=== PATIENT | female | born 1980 | race Caucasian/White ===

== ENCOUNTER 2018-07-25 15:09 | Outpatient (REF) | payer BC, SELFPAY ==
[2018-07-25 21:33] LABS: TSH (W/Ref FT4) 1.07 uIU/mL (0.358-3.74)
== END 2018-07-25 15:29 ==
LOC: NCHCN 15:09
PROVIDERS: PCP Internal Medicine; Visit Provider Family Medicine
DX: E03.9 Hypothyroidism, unspecified (principal)
CPT/HCPCS: 84443

== ENCOUNTER 2019-05-21 19:52 | Outpatient (REF) | payer BC, SELFPAY ==
[2019-05-21 20:31] LABS: T4 9.6 ug/dL (4.5-12.5); TSH 0.22 uIU/mL (0.358-3.74)
[2019-05-21 20:49] LABS: FREE T4 1.29 ng/dL (0.76-1.46)
== END 2019-05-21 20:12 ==
LOC: NCHCN 19:52
PROVIDERS: PCP Internal Medicine; Visit Provider Family Medicine
DX: E03.9 Hypothyroidism, unspecified (principal)
CPT/HCPCS: 84436; 84439; 84443

== ENCOUNTER 2020-01-22 20:25 | Outpatient (REF) | payer BC, SELFPAY ==
[2020-01-27 08:28] LABS: COVID-19 RT-PCR Result Not Detected (NotDetected)
== END 2020-01-22 20:45 ==
LOC: NCHCN 20:25
PROVIDERS: PCP Internal Medicine; Visit Provider Family Medicine
DX: Z20.828 Contact with and (suspected) exposure to other viral communicable diseases (principal); R50.9 Fever, unspecified
CPT/HCPCS: U0003

== ENCOUNTER 2020-07-20 15:56 | Outpatient (REF) | payer BC, SELFPAY ==
[2020-07-20 19:47] LABS: Calculated LDL 65 mg/dL (<100); Cholesterol 153 mg/dL (<200); Glucose 79 mg/dL (74-106); HDL Cholesterol 81 mg/dL (40-60); Triglyceride 35 mg/dL (<150)
[2020-07-20 20:18] LABS: FREE T4 1.75 ng/dL (0.76-1.46)
== END 2020-07-20 16:16 ==
LOC: NCHCN 15:56
PROVIDERS: PCP Internal Medicine; Visit Provider Family Medicine
DX: Z00.00 Encounter for general adult medical examination without abnormal findings (principal); E03.9 Hypothyroidism, unspecified; Z13.220 Encounter for screening for lipoid disorders; Z13.1 Encounter for screening for diabetes mellitus
CPT/HCPCS: 80061; 82947; 84439; 84443

== ENCOUNTER 2020-09-22 15:22 | Outpatient (REF) | payer BC, SELFPAY ==
[2020-09-26 14:57] LABS: Patient Race White; SARS-CoV-2 RNA Undetected (Undetected); SARS-CoV-2 Specimen Source Nasal
== END 2020-09-22 15:42 ==
LOC: NCHCN 15:22
PROVIDERS: PCP Internal Medicine; Visit Provider Nurse Practitioner Family
DX: Z11.59 Encounter for screening for other viral diseases (principal)
CPT/HCPCS: U0003

== ENCOUNTER 2020-11-01 16:36 | Outpatient (REF) | payer BC, SELFPAY ==
[2020-11-03 14:49] LABS: COVID-19 RT-PCR UVMMC Result Negative (Negative)
== END 2020-11-01 16:56 ==
LOC: NCHCN 16:36
PROVIDERS: PCP Internal Medicine; Visit Provider Family Medicine
DX: Z11.59 Encounter for screening for other viral diseases (principal)
CPT/HCPCS: U0003

== ENCOUNTER 2021-02-03 09:50 | Outpatient (REF) | payer BC, SELFPAY ==
--- NOTE | 2021-02-03 09:30 | PAPFT_PTH ---
PATIENT: Cody Sullivan LOC: [facility] U#:[id number] AGE/SX: 40/F ROOM: RE02/03/[address]: GRACE Stark : 1980 BED: DIS: 02/03/2021 SPEC #: [id number] RECD: 02/03/21 12:58 STATUS: MERVIN REQ #: [id number] KARL: 02/03/21 09:[address]: Joy Jang DEPT: [facility] Cytology RECD BY: Ashley Lloyd ENTERED: 02/03/21 12:58 SP TYPE: PAPFT OTHR DR: Christian Cummings Tissues: 1 - CX/ENDOCX FOR PAP SMEARS Procedures: PAP THIN PREP/[facility] Screening HPV DNA PROBE Comments: [id number]
== END 2021-02-03 09:51 | disposition home or self-care (01) ==
LOC: LBN 09:50
PROVIDERS: PCP Internal Medicine; Visit Provider Nurse Practitioner Family
DX: Z12.4 Encounter for screening for malignant neoplasm of cervix (principal); Z11.51 Encounter for screening for human papillomavirus (HPV)
CPT/HCPCS: 88142; 87624

== ENCOUNTER 2021-02-10 01:03 | Outpatient (CLI) | payer BC, SELFPAY ==
--- NOTE | 2021-02-10 10:15 | DI.MAMMO_ITS ---
EXAM: MG MAMMO SCREENING CLINICAL HISTORY: screening. TECHNIQUE: Bilateral full field digital CC and MLO mammographic images were obtained with 3D tomosyn thesis and utilizing computer aided detection (CAD). COMPARISON: None. Baseline exam. FINDINGS: Masses/Architectural Distortion: None seen. Microcalcifications: No suspicious pleomorphic-type are seen. Skin Thickening/Nipple Retraction: None. IMPRESSION: 1. No significant interval change with no specific features of malignancy noted. 2. Unless there is more urgent need, annual screening mammography is recommended, as per [place] [employer] guidelines. BI-RADS Category 1-negative Breast Density - Category D - extremely dense Breast Density Category D: The mammogram demonstrates the patient's breast tissue is dense. Dense marcia ast tissue is very common and is not abnormal but dense breast tissue can make it harder to find canc er on a mammogram. Also, dense breast tissue may increase their breast cancer risk. This information about the result of the mammogram report was provided to the patient to raise their awareness. Use th is report when you speak with the patient about their risks for breast cancer, which includes their f amily history. At that time, you may recommend for more screening tests (Ultrasound or MRI) as they m ight be useful based on their risk. A negative radiographic report should not delay biopsy if a dominant or clinically suspicious mass is present. Up to ten percent of cancers are not identified on mammography. A negative report may reinforce clinical impression. Adenosis and dense breasts may obscure an underlying neoplasm. False positive reports average 6 to 10%.
== END 2021-02-10 01:23 ==
PROVIDERS: PCP Internal Medicine; Visit Provider Nurse Practitioner Family
DX: Z12.39 Encounter for other screening for malignant neoplasm of breast (principal); R92.2 Inconclusive mammogram
CPT/HCPCS: 77063; 77067

== ENCOUNTER 2021-04-05 16:12 | Outpatient (REF) | payer BC, SELFPAY ==
[2021-04-05 19:32] LABS: TSH (W/Ref FT4) 3.13 uIU/mL (0.36-3.74)
== END 2021-04-05 16:13 | disposition home or self-care (01) ==
LOC: NCHCN 16:12
PROVIDERS: PCP Internal Medicine; Visit Provider Family Medicine
DX: Z00.00 Encounter for general adult medical examination without abnormal findings (principal); E03.9 Hypothyroidism, unspecified
CPT/HCPCS: 84443

== ENCOUNTER 2021-11-10 10:50 | Outpatient (REF) | payer BC, SELFPAY ==
[2021-11-10 16:18] LABS: TSH 0.39 uIU/mL (0.36-3.74)
== END 2021-11-10 10:51 | disposition home or self-care (01) ==
LOC: NCHCN 10:50
PROVIDERS: PCP Internal Medicine; Visit Provider Family Medicine
DX: E03.9 Hypothyroidism, unspecified (principal)
CPT/HCPCS: 84443

== ENCOUNTER 2023-03-22 14:19 | Outpatient (REF) | payer BC, SELFPAY ==
[2023-03-22 15:37] LABS: TSH (W/Ref FT4) 0.22 uIU/mL (0.36-3.74)
[2023-03-22 15:55] LABS: FREE T4 1.68 ng/dL (0.76-1.46)
== END 2023-03-22 14:20 | disposition home or self-care (01) ==
LOC: NCHCN 14:19
PROVIDERS: PCP Internal Medicine; Visit Provider Family Medicine
DX: E03.9 Hypothyroidism, unspecified (principal)
CPT/HCPCS: 84439; 84443

== ENCOUNTER → 2023-08-13 03:41 | Outpatient (CLI) | payer BC, SELFPAY ==
--- NOTE | 2023-08-13 | DI.MAMMO_ITS ---
Exam(s) MAMMO SCREENING EXAM: MAMMO SCREENING CLINICAL HISTORY: SCREENING, Z12.31 TECHNIQUE: Bilateral full field digital CC and MLO mammographic images were obtained with 3D tomosyn thesis and utilizing computer aided detection (CAD). COMPARISON: 2020 FINDINGS: Masses/Architectural Distortion: None seen. Microcalcifications: No suspicious pleomorphic-type are seen. Skin Thickening/Nipple Retraction: None. IMPRESSION: 1. No significant interval change with no specific features of malignancy noted. 2. Unless there is more urgent need, screening mammography is recommended, as per [place] [employer] guidelines. Category: Density: Breast density category C or D implies that the patient has dense breast tissue. Dense breast tissue is very common and is not abnormal but dense breast tissue can make it harder to find cancer on a ma mmogram. Also, dense breast tissue may increase their breast cancer risk. This information about the result of the mammogram report was provided to the patient to raise their awareness. Use this report when you speak with the patient about their risks for breast cancer, which includes their family hist ory. At that time, you may recommend for more screening tests (Ultrasound or MRI) as they might be us eful based on their risk. A negative radiographic report should not delay biopsy if a dominant or clinically suspicious mass is present. Up to ten percent of cancers are not identified on mammography. A negative report may reinforce clinical impression. Adenosis and dense breasts may obscure an underlying neoplasm. False positive reports average 6 to 10%. Patient will receive a letter notifying them of these results.
== END ==
PROVIDERS: PCP Internal Medicine; Visit Provider Family Medicine
DX: Z12.31 Encounter for screening mammogram for malignant neoplasm of breast (principal)
CPT/HCPCS: 77063; 77067

== ENCOUNTER 2024-09-26 13:09 | Outpatient (REF) | payer BC, SELFPAY ==
--- OUTSIDE RECORDS SUMMARY | 2024-09-26 13:10 | XMS_ITS | Encounter Summary ---
Author Organization [facility] Address [address] [place] [address] Care Team Providers Care Flow Specialist Name Role Phone Christian Cummings MD Primary Care Provider [phone] Encounter Details Date Type Department Care Team (Late st Contact Info) Description 02/04/2021 Lab Requisition [facility] Pathology & Laboratory Medicine - [address] [address] Joy Jang, [address] [place] [address] Encounter for other general examination Social History Tobacco Use Types Packs/Day Years Used Date Smoking Tobacco: Never Assessed Comments Unknown Sex and Gender Information Value Date Recorded Sex Assigned at Not on file Legal Sex Female 18:33 EST Gender Identity Not on file Sexual Orientation Not on file documented as of this encounter Plan of Treatment Not on file documented as of this encounter Procedures Procedure Name Priority Date/Time Associated Diagnosis Comments PAP TEST Today 02/03/2021 9:30 EDT Encounter for other general examination HPV DNA DETECTION WITH GENOTYPING, PCR Today 02/03/2021 9:30 EDT Encounter for other general examination documented in this encounter Results * HUMAN PAPILLOMAVIRUS (HPV) DETECTION-HIGH RISK TYPES (02/03/2021 9:30 EDT) HPV other High Risk types, PCR Negative Negative 02/11/2021 14:59 EDT [facility] Comment:No E6 or E7 mRNA is detected from HPV types 16,18,31,33,35,39,45,51,52,56,58,59,66, and 68 by uptwist spinner mediated amplification. Papanicolaou smear specimen (specimen) CERVIX UTERI STRUCTURE / Unknown 02/03/2021 9:30 EDT 02/10/2021 10:58 EDT Joy Jang REPRODUCTION TECHNICIAN MICROBIOLOGY - GENERAL ORDER NACHO Final Result [facility] [address] [place] [address] * PAP TEST (02/03/2021 9:30 EDT) Specimens A. Cervix and/or Endocervix , ThinPrep Imaging System with Manual Evaluation 02/11/2021 14:59 EDT [facility] Specimen Adequacy Satisfactory for Evaluation - transformation zone component present 02/11/2021 14:59 EDT [facility] General Categorization Negative for intraepithelial lesion or malignancy 02/11/2021 14:59 EDT [facility] Attestation . 02/11/2021 14:59 T [facility] at 1459 Clinical History See below 02/12/20 21 14:59 EDT [facility] HPV The result for the Human Papillomavirus (HPV) Detection-High Risk Types is Negative. No E6 or E7 mRNA is detected from HPV types 16,18,31,33,35,39 ,45,51,52,56,58,5 9,66, and 68 by uptwist spinner mediated amplification.Davina ting was performed on specimen [id number] and was resulted on 02/11/2021 1457 EDT by GABRIELLE, LAB INSTRUMENT RESULTS IN 02/11/2021 14:59 EDT [facility] Performing Lab [facility] 02/11/2021 14:59 EDT [facility] Scanned Images 02/11/2021 14:59 EDT [facility] Papanicolaou smear specimen (specimen) CERVIX UTERI STRUCTURE / Unknown 02/03/2021 9:30 EDT 02/04/2021 9:12 EDT Joy Jang REPRODUCTION TECHNICIAN PATHOLOGY ORDERABLES Final R esult [facility] [address] [place] [address] documented in this encounter Visit Diagnoses Diagnosis Encounter for other general examination documented in this encounter Care Teams Flow Specialist Relationship Specialty Start Date End Date Christian Cummings MD [address] [place] [address] PCP - General 11/19/14 documented as of this encounter
--- OUTSIDE RECORDS SUMMARY | 2024-09-26 13:10 | XMS_ITS | Encounter Summary ---
Author Organization [facility] Address [address] [place] [address] Care Team Providers Care Lead Sales Consultant Name Role Phone Christian Cummings MD Primary Care Provider [phone] Encounter Details Date Type Department Care Team (Late st Contact Info) Description 11/02/2020 Lab Requisition [facility] Pathology & Laboratory Medicine - [address] [address] Outr Resulting Lab, Provider Social History Tobacco Use Types Packs/Day Years [...] Procedure Name Priority Date/Time Associated Diagnosis Comments ZZCOVID-19 TEST [facility] PCR Today 11/01/2020 16:05 EST COVID-19 TESTING Routine 11/01/2020 16:0 5 EST documented in this encounter Results * COVID-19 TEST [facility] PCR (11/01/2020 16:05 EST) Swab ENTIRE NASOPHARYNX / Unknown 11/01/2020 16:05 EST 11/02/2020 16:07 EST us Provider Outr Resulting Lab MICROBIOLOGY - GENER AL ORDERABLES Final Result [facility] [address] [place] [address] * COVID-19 TESTING (11/01/2020 16:05 EST) COVID-19 rt-PCR Result Negative Negative 11/03/2020 14:[address] [facility] Comment: Negative results do not preclude 2019-nCoV infection and should not be used as the sole basis for treatment or other patient management decisions. Negative results must be combined with clinical observations, patient history, and epidemiological information. This test was developed and its performance characteristics determined by [facility]. It has not been cleared or approved by the US Food and Drug Administration. FDA does not require this test to go through premarket FDA review. This test is used for clinical purposes. It should not be regarded as investigational or for research. This laboratory is certified under the Clinical Laboratory Improvement Amendments (CLIA) as qualified to perform high complexity clinical laboratory testing. This test is based on the CDC COVID-19 Emergency Use Authorization (EUA) assay, with minor modification as defined by the FDA Performed on the Door 6 7 Flex. Performing Lab [employer] 7 [facility] 11/03/2020 14:[address] [facility] Swab 11/01/2020 16:0 5 EST 11/02/2020 16:07 EST us Provider Outr Resulting Lab MICROBIOLOGY - GENER AL ORDERABLES Final Result [facility] [address] [place] [address] documented in this encounter Visit Diagnoses Not on filedocumented in this encounter Care Teams Lead Sales Consultant Relationship Specialty Start Date End Date Christian Cummings MD [address] [place] [id number] PCP - General 11/19/14 documented as of this encounter
--- OUTSIDE RECORDS SUMMARY | 2024-09-26 13:10 | XMS_ITS | Encounter Summary ---
Author Organization [facility] Address [address] [place] [address] Care Team Providers Care Physics Technical Officer Name Role Phone Christian Cummings MD Primary Care Provider [phone] Encounter Details Date Type Department Care Team (Late st Contact Info) Description 11/15/2020 Lab Requisition [facility] Pathology & Laboratory Medicine - [address] [id number] Outr Resulting Lab, Provider Social History Tobacco [...] Procedure Name Priority Date/Time Associated Diagnosis Comments DO NOT ORDER STANDALONE - [facility] COVID TEST Today 11/15/2020 12:39 EST COVID-19 TESTING Routine 11/15/2020 12:3 9 EST documented in this encounter Results * DO NOT ORDER STANDALONE - BROAD COVID TEST (11/15/2020 12:39 EST) COVID-19 rt-PCR Result NEGATIVE Negative 11/16/2020 20:45 EST [facility] Comment: 2019-novel Coronavirus (2019-nCoV) not detected by the qRT-PCR assay. Consider testing for other respiratory viruses or re-collecting for 2019-nCoV testing. Note: Optimum timing for peak viral levels during infections caused by 2019-nCoV have not been determined. Collection of multiple specimens from the same patient may be necessary to detect the virus. Limitations Positive results are indicative of active infection with SARS-CoV-2 but do not rule out bacterial infection or co-infection with other viruses. The agent detected may not be the definite cause of disease. In addition, detection of viral RNA may not indicate the presence of infectious virus or that SARS-CoV-2 is the causative agent for clinical symptoms. Negative results do not preclude SARS-CoV-2 infection and should not be used as the sole basis for patient management decisions. Negative results must be combined with clinical observations, patient history, and epidemiological information. False negative results may also occur if amplification inhibitors are present in the specimen or if inadequate numbers of organisms are present in the specimen. Optimum specimen types and timing for peak viral levels during infections caused by SARS-CoV-2 have not been fully determined. Collection of multiple specimens (types and time points) from the same patient may be necessary to detect the virus. The test was validated for use with upper respiratory specimens obtained via nasopharyngeal or oropharyngeal swabs in VTM, UTM, M4, M5, M6, saline, and MTM media. The performance of this test has not been established for other specimens. Specimens collected using other FDA recommended Specimen Collection Materials listed in the FDA COVID-19 [employer] communication (January 29, 2020) are processed with the caveat that they were not all validated for use with this test and the result must be interpreted in this context. Furthermore, a false negative results may occur if a specimen is improperly collected, transported or handled. If the virus mutates in the RT-PCR target region, SARS-CoV-2 may not be detected or may be detected less predictably. Inhibitors or other types of interference may produce a false negative result. An interference study evaluating the effect of common cold medications was not performed. This test is not FDA-cleared but its performance characteristics were established by our CLIA-certified, CAP-accredited, high complexity laboratory in accordance with CLIA regulations, [employer] (CAP) guidelines (Jan 22, 2020), and FDA guidance (Jan 03, 2020). This test is only for use under the Food and Drug Administration's Emergency Use Authorization. Swab ENTIRE NASOPHARYNX / Unknown 11/15/2020 12:39 EST 11/15/2020 21:06 EST us Provider Outr Resulting Lab MICROBIOLOGY - GENER AL ORDERABLES Final Result [facility] [place] * COVID-19 TESTING (11/15/2020 12:39 EST) COVID-19 rt-PCR Result NEGATIVE Negative 11/16/2020 21:[address] [facility] Comment: 2019-novel Coronavirus (2019-nCoV) not detected by the qRT-PCR assay. Consider testing for other respiratory viruses or re-collecting for 2019-nCoV testing. Note: Optimum timing for peak viral levels during infections caused by 2019-nCoV have not been determined. Collection of multiple specimens from the same patient may be necessary to detect the virus. Limitations Positive results are indicative of active infection with SARS-CoV-2 but do not rule out bacterial infection or co-infection with other viruses. The agent detected may not be the definite cause of disease. In addition, detection of viral RNA may not indicate the presence of infectious virus or that SARS-CoV-2 is the causative agent for clinical symptoms. Negative results do not preclude SARS-CoV-2 infection and should not be used as the sole basis for patient management decisions. Negative results must be combined with clinical observations, patient history, and epidemiological information. False negative results may also occur if amplification inhibitors are present in the specimen or if inadequate numbers of organisms are present in the specimen. Optimum specimen types and timing for peak viral levels during infections caused by SARS-CoV-2 have not been fully determined. Collection of multiple specimens (types and time points) from the same patient may be necessary to detect the virus. The test was validated for use with upper respiratory specimens obtained via nasopharyngeal or oropharyngeal swabs in VTM, UTM, M4, M5, M6, saline, and MTM media. The performance of this test has not been established for other specimens. Specimens collected using other FDA recommended Specimen Collection Materials listed in the FDA COVID-19 [employer] communication (January 29, 2020) are processed with the caveat that they were not all validated for use with this test and the result must be interpreted in this context. Furthermore, a false negative results may occur if a specimen is improperly collected, transported or handled. If the virus mutates in the RT-PCR target region, SARS-CoV-2 may not be detected or may be detected less predictably. Inhibitors or other types of interference may produce a false negative result. An interference study evaluating the effect of common cold medications was not performed. This test is not FDA-cleared but its performance characteristics were established by our CLIA-certified, CAP-accredited, high complexity laboratory in accordance with CLIA regulations, [employer] (CAP) guidelines (Jan 22, 2020), and FDA guidance (Jan 03, 2020). This test is only for use under the Food and Drug Administration's Emergency Use Authorization. Performing Lab [facility] 11/16/2020 21:40 EST [facility] Swab 11/15/2020 12:3 9 EST 11/15/2020 21:06 EST us Provider Outr Resulting Lab MICROBIOLOGY - GENER AL ORDERABLES Final Result [facility] [address] [place] [address] [facility] [place] documented in this encounter Visit Diagnoses Not on filedocumented in this encounter Care Teams Physics Technical Officer Relationship Specialty Start Date End Date Christian Cummings MD [address] [place] [id number] PCP - General 11/19/14 documented as of this encounter
--- OUTSIDE RECORDS SUMMARY | 2024-09-26 13:10 | XMS_ITS | Clinical Summary ---
Author Organization [facility] Address [address] [place] [address] Care Team Providers Care Sterile Instrument Technician Name Role Phone Christian Cummings MD Primary Care Provider [phone] Social History Tobacco Use Types Packs/Day Years Used Date Smoking Tobacco: Never Assessed Comments Unknown Sex and Gender Information Value Date Recorded Sex Assigned at Not on file Legal Sex Female 18:33 EST Gender Identity Not on file Sexual Orientation Not on file Plan of Treatment Health Maintenance Due Date Last Done Comments Hepatitis C Screen 1980 Hepatitis B Vaccine (1 of 3 - 19+ 3-dose series) 06/19 COVID-19 Vaccine ( season) 2024 Care Teams Sterile Instrument Technician Relationship Specialty Start Date End Date Christian Cummings MD [address] [place] [id number] PCP - General 11/19/14
--- OUTSIDE RECORDS SUMMARY | 2024-09-26 13:10 | XMS_ITS | Referral Summary ---
Author Organization [facility] Address [address] [place] [address] Care Team Providers Care Shipyard Painting Supervisor Name Role Phone Christian Cummings MD Primary Care Provider [phone] Social History Tobacco Use Types Packs/Day Years Used Date Smoking Tobacco: Never Assessed Comments Unknown Sex and Gender Information Value Date Recorded Sex Assigned at Not on file Legal Sex Female 18:33 EST Gender Identity Not on file Sexual Orientation Not on file Plan of Treatment Not on file Care Teams Shipyard Painting Supervisor Relationship Specialty Start Date End Date Christian Cummings MD [address] [place] [address] PCP - General 11/19/14
--- OUTSIDE RECORDS SUMMARY | 2024-09-26 13:11 | XMS_ITS | Encounter Summary ---
Author Organization [facility] Address [address] [place] [address] Care Team Providers Care Per Diem Clerk Name Role Phone Unknown, Provider Primary Care Provider Unava ilable Encounter Details Date Type Department Care Team (Late st Contact Info) Description 03/08/2004 Results Only [facility] conversion [address] [place] [address] Joy Jang, [facility] [address] [place] [address] [place] [address] Social History Tobacco Use Types Packs/Day Years [...] Procedure Name Priority Date/Time Associated Diagnosis Comments CYTOPATHOLOGY Routine 03/08/2004 0:00 EDT documented in this encounter Results * CYTOPATHOLOGY (03/08/2004 0:00 EDT) Pathology Report: CYTOPATHOLOGY REPORT Reports generated via electronic interface contain original data; however they are lacking the format of the original report. Caution should be taken when reading/interpreti ng unformatted reports. Name: ? SUN TOÑITO Patrice ? Accession #: ? [id number] : ? 1980 (Age: 23) ??F ?Collect Date: ? 03/08/2004 Location: ? [facility] ? Receive Date: ? 03/09/2004 Provider: ?JOY JANG ACCOUNTS RECEIVABLE SPECIALIST Copy to: ? Specimen/Source: ?ThinPrep Pap Test, Cervix/Endocervix Last Menstrual Period: ? 02/10/04 Other: ? HPVA - HPV testing requested if ASC-US on the current ThinPrep Pap test. ? SPECIMEN ADEQUACY ? Satisfactory for Evaluation - transformation zone component present GENERAL CATEGORIZATION ? Negative for Intraepithelial Lesion or Malignancy ? Document reviewed and electronically signed by: ? ARMIDA Jackson(ASCP) ? Report Date: ??03/14/2004 14:57 End of Report [facility] 03/08/2004 03/09/2004 us Joy Jang ACCOUNTS RECEIVABLE SPECIALIST PATHOLOGY ORDERABLES Final R esult [facility] [address] [place] [address] documented in this encounter Visit Diagnoses Not on filedocumented in this encounter Care Teams Per Diem Clerk Relationship Specialty Start Date End Date Unknown, Provider, PCP - General 07/14/09 11/18/14 documented as of this encounter
--- OUTSIDE RECORDS SUMMARY | 2024-09-26 13:11 | XMS_ITS | Encounter Summary ---
Author Organization [facility] Address [address] [place] [address] Care Team Providers Care Security Systems Integrator Name Role Phone Unknown, Provider Primary Care Provider Unava ilable Encounter Details Date Type Department Care Team (Latest Contact Info) Description 11/16/2014 9:52 EST - 11/16/2014 23:59 EST Hospital Encounter [address] [address] Unknown, Provider, Discharge Disposition: Home or Self Care Social History Tobacco Use Types Packs/Day Years Used Date Smoking Tobacco: Never Assessed Comments Unknown Sex and Gender Information Value Date Recorded Sex Assigned at Not on file Legal Sex Female 18:33 EST Gender Identity Not on file Sexual Orientation Not on file documented as of this encounter Discharge Disposition Disposition Code Departure Means Destination Home or Self Residential documented in this encounter Plan of Treatment Not on file documented as of this encounter Visit Diagnoses Not on filedocumented in this encounter Care Teams Security Systems Integrator Relationship Specialty Start Date End Date Unknown, Provider, PCP - General 07/14/09 11/18/14 documented as of this encounter
--- OUTSIDE RECORDS SUMMARY | 2024-09-26 13:11 | XMS_ITS | Encounter Summary ---
Author Organization [facility] Address [address] [place] [address] Care Team Providers Care Grain Broker Name Role Phone Christian Cummings MD Primary Care Provider [phone] Encounter Details Date Type Department Care Team (Late st Contact Info) Description 01/24/2020 Lab Requisition [facility] Pathology & Laboratory Medicine - [address] [address] Jorge Luis Lloyd MD [address] [place] [phone] Encounter for other general examination Social History [...] Procedure Name Priority Date/Time Associated Diagnosis Comments COVID-19 TESTING Today 01/22/2020 20:0 0 EDT Encounter for other general examination documented in this encounter Results * COVID-19 TEST STATE LAB (01/22/2020 20:00 EDT) COVID-19 Result Not Detected Not Detected 02/04/2020 20:55 EDT [facility] Comment:Assayed by [facility], [place], [place] Swab ENTIRE NASOPHARYNX / Unknown 01/22/2020 20:00 EDT 01/24/2020 13:24 EDT us Jorge Luis Lloyd MD MICROBIOLOGY - GENERAL CAITY MCELROY Final Result [facility] [address] [place] [address] documented in this encounter Visit Diagnoses Diagnosis Encounter for other general examination documented in this encounter Care Teams Grain Broker Relationship Specialty Start Date End Date Christian Cummings MD [address] [place] [id number] PCP - General 11/19/14 documented as of this encounter
--- OUTSIDE RECORDS SUMMARY | 2024-09-26 13:11 | XMS_ITS | Encounter Summary ---
Author Organization [facility] Address [address] [place] [address] Care Team Providers Care Head School Custodian Name Role Phone Unknown, Provider Primary Care Provider Unava ilable Encounter Details Date Type Department Care Team (Late st Contact Info) Description 03/20/2006 Results Only [facility] - Map conversion [address] [place] [address] Joy Jang, [facility] [address] [place] [address] [place] [address] Social History Tobacco Use Types [...] Procedure Name Priority Date/Time Associated Diagnosis Comments HPV DETECTION, HIGH RISK TYPES Routine 03/20/2006 8:40 EDT CYTOPATHOLOGY Routine 03/20/2006 0:00 EDT documented in this encounter Results * HUMAN PAPILLOMA VIRUS DNA TEST (03/20/2006 8:40 EDT) Specimen Description Cervix, ThinPrep vial [facility] Result Positive for one or more of HPV types 16,18,31,33,35 ,39,45,51,52,5 6,58,59, or 68. These high/intermedi ate risk HPV types are associated with dysplasia and some cervical cancers. [facility] Report Status Final [id number] [facility] 03/20/2006 8:40 EDT 03/27/2006 11:40 EDT Joy Jang PARALEGAL SECRETARY MICROBIOLOGY - GENERAL ORDER NACHO Final Result [facility] [address] [place] [address] * CYTOPATHOLOGY (03/20/2006 0:00 EDT) Pathology Report: CYTOPATHOLOGY REPORT Reports generated via electronic interface contain original data; however they are lacking the format of the original report. Caution should be taken when reading/interpreti ng unformatted reports. Name: ? TOÑITO GARSIA ? Accession #: ? [id number] : ? 1980 (Age: 25) ??F ?Collect Date: ? 03/20/2006 Location: ? [facility] ? Receive Date: ? 03/21/2006 Provider: ?JOY JANG PARALEGAL SECRETARY Copy to: ? Specimen/Source: ?ThinPrep Pap Test, Cervix/Endocervix, processed on [employer] ThinPrep Imaging System, with manual evaluation Last Menstrual Period: ? 03/05/06 Hormonal/Contracep tive Status: ? Oral contraceptives Other: ? HPVA - HPV testing requested if ASC-US on the current ThinPrep Pap test. ? SPECIMEN ADEQUACY ? Satisfactory for Evaluation - transformation zone component present GENERAL CATEGORIZATION ? Epithelial Cell Abnormality INTERPRETATION ? Squamous Cell Abnormality - Atypical squamous cells, undetermined significance. EDUCATIONAL NOTES/RECOMMENDATI ONS ? [facility] recommends following the 2001 Consensus Guidelines for the Management of Women with Cervical Cytological Abnormalities (ANGY,2002;287:212 0-9). Management algorithms have been distributed by [facility] and are available online at www.ASCCP.org. ? Document reviewed and electronically signed by: ? REID CARSON MD ? Report Date: ??03/26/2006 13:08 End of Report [facility] 03/20/2006 03/21/2006 us Joy Jang PARALEGAL SECRETARY PATHOLOGY ORDERABLES Final R esult [facility] [address] [place] [address] documented in this encounter Visit Diagnoses Not on filedocumented in this encounter Care Teams Head School Custodian Relationship Specialty Start Date End Date Unknown, Provider, PCP - General 07/14/09 11/18/14 documented as of this encounter
--- OUTSIDE RECORDS SUMMARY | 2024-09-26 13:11 | XMS_ITS | Encounter Summary ---
[place] [address] Care Team Providers Care Security Operations Analyst Name Role Phone Unavailable Primary Care Provider Unavailabl e Encounter Details Date Type Department Care Team (Latest Contact Info) Description 09/20/2020 8:39 PM EST - 09/20/2020 11:59 PM EST Hospital [place] [address] Discharge Disposition: Home Social History Tobacco Use Types Packs/Day Years Used Date Smoking Tobacco: Never Assessed Sex and Gender Information Value Date Recorded Sex Assigned at Not on file Gender Identity Not on file Sexual Orientation Not on file documented as of this encounter Plan of Treatment Not on file documented as of this encounter Visit Diagnoses Not on filedocumented in this encounter
--- OUTSIDE RECORDS SUMMARY | 2024-09-26 13:11 | XMS_ITS | Clinical Summary ---
[place] [address] Care Team Providers Care Insurance Risk Surveyor Name Role Phone Unavailable Primary Care Provider Unavailabl e Social History Tobacco Use Types Packs/Day Years Used Date Smoking Tobacco: Never Assessed Sex and Gender Information Value Date Recorded Sex Assigned at Not on file Gender Identity Not on file Sexual Orientation Not on file Plan of Treatment Health Maintenance Due Date Last Done Comments HIV screen 1998 Hepatitis C Screening 1998 Hepatitis B vaccine (0-59 yrs) (1) 1999 Tetanus/Diphtheria/Pertussis Vaccines (1 - Tdap) 06/19 HPV test 2010 PAP Smear 2010 Breast Cancer Share Decision Needed 2020 Breast Cancer screening 2020 Covid-19 Vaccine ( - season) 2024 Influenza (Flu) vaccine (1 o f 1 - Influenza standard series) 07/06/2024
--- OUTSIDE RECORDS SUMMARY | 2024-09-26 13:11 | XMS_ITS | Encounter Summary ---
Author Organization [facility] Address [address] [place] [address] Care Team Providers Care Hand Roller Engraver Name Role Phone Christian Cummings MD Primary Care Provider [phone] Encounter Details Date Type Department Care Team (Late st Contact Info) Description 04/20/2020 Lab Requisition [facility] Pathology & Laboratory Medicine - [address] [id number] Outr Resulting Lab, Provider Social History Tobacco [...] ORDER STANDALONE - [facility]OAD COVID TEST Today 04/20/2020 8:45 EDT COVID-19 TESTING Routine 04/20/2020 8:45 EDT documented in this encounter Results * DO NOT ORDER STANDALONE - BROAD COVID TEST (04/20/2020 8:45 EDT) COVID-19 rt-PCR Result NEGATIVE Negative 04/21/2020 22:45 EDT [facility] Comment: 2019-novel Coronavirus (2019-nCoV) not [...] in accordance with CLIA regulations, College of [employer] Pathologists (CAP) guidelines (Jan 22, 2020), and FDA guidance (Jan 03, 2020). This test is only for use under the Food and Drug Administration's Emergency Use Authorization. Swab ENTIRE NASOPHARYNX / Unknown 04/20/2020 8:45 EDT 04/20/2020 19:28 EDT us Provider Outr Resulting Lab MICROBIOLOGY - GENER AL ORDERABLES Final Result [facility] [place], [place] * COVID-19 TESTING (04/20/2020 8:45 EDT) Pathologist [facility] COVID-19 rt-PCR Result NEGATIVE Negative 04/22/2020 7:04 EDT [facility] Comment: 2019-novel Coronavirus (2019-nCoV) not detected [...] in accordance with CLIA regulations, College of [employer] Pathologists (CAP) guidelines (Jan 22, 2020), and FDA guidance (Jan 03, 2020). This test is only for use under the Food and Drug Administration's Emergency Use Authorization. Performing Lab [facility] 04/22/2020 7:04 EDT [facility] Swab ENTIRE NASOPHARYNX / Unknown 04/20/2020 8:45 EDT 04/20/2020 19:28 EDT us Provider Outr Resulting Lab MICROBIOLOGY - GENER AL ORDERABLES Final Result [facility] [address] [place] [address] [facility] [place], [place] documented in this encounter Visit Diagnoses Not on filedocumented in this encounter Care Teams Hand Roller Engraver Relationship Specialty Start Date End Date Christian Cummings MD [address] [place] [id number] PCP - General 11/19/14 documented as of this encounter
--- OUTSIDE RECORDS SUMMARY | 2024-09-26 13:11 | XMS_ITS | Encounter Summary ---
Author Organization [facility] Address [address] [place] [address] Care Team Providers Care Chrome Plater Helper Name Role Phone Christian Cummings MD Primary Care Provider [phone] Encounter Details Date Type Department Care Team (Late st Contact Info) Description 10/19/2020 Lab Requisition [facility] Pathology & Laboratory Medicine - [address] [address] Outr Resulting Lab, Provider Social History Tobacco [...] ORDER STANDALONE - BROAD COVID TEST Today 10/18/2020 12:35 EST COVID-19 TESTING Routine 10/18/2020 12:3 5 EST documented in this encounter Results * DO NOT ORDER STANDALONE - BROAD COVID TEST (10/18/2020 12:35 EST) COVID-19 rt-PCR Result NEGATIVE Negative 10/21/2020 20:27 EST [facility] Comment: 2019-novel Coronavirus [...] in accordance with CLIA regulations, College of [place] [employer]ologists (CAP) guidelines (Jan 22, 2020), and FDA guidance (Jan 03, 2020). This test is only for use under the Food and Drug Administration's Emergency Use Authorization. Swab ENTIRE NASOPHARYNX / Unknown 10/18/2020 12:35 EST 10/19/2020 16:10 EST us Provider Outr Resulting Lab MICROBIOLOGY - GENER AL ORDERABLES Final Result [facility] [place], [place] * COVID-19 TESTING (10/18/2020 12:35 EST) COVID-19 rt-PCR Result NEGATIVE Negative 10/21/2020 21:19 EST [facility] Comment: 2019-novel Coronavirus (2019-nCoV) not detected [...] in accordance with CLIA regulations, College of [place] Pathologists (CAP) guidelines (Jan 22, 2020), and FDA guidance (Jan 03, 2020). This test is only for use under the Food and Drug Administration's Emergency Use Authorization. Performing Lab [facility] 10/21/2020 21:19 EST [facility] Swab 10/18/2020 12:3 5 EST 10/19/2020 16:10 EST us Provider Outr Resulting Lab MICROBIOLOGY - GENER AL ORDERABLES Final Result [facility] [address] [place] [address] [facility] [place], [place] documented in this encounter Visit Diagnoses Not on filedocumented in this encounter Care Teams Chrome Plater Helper Relationship Specialty Start Date End Date Christian Cummings MD [address] [place] [id number] PCP - General 11/19/14 documented as of this encounter
--- OUTSIDE RECORDS SUMMARY | 2024-09-26 13:11 | XMS_ITS | Encounter Summary ---
Author Organization [facility] Address [address] [place] [address] Care Team Providers Care Cylinder Press Operator Apprentice Name Role Phone Unavailable Primary Care Provider Unavailabl e Encounter Details Date Type Department Care Team (Latest Contact Info) Description 07/13/2009 14:04 EDT - 07/13/2009 14:06 EDT Hospital Encounter [facility] - Other [address] [place] [address] [address] [place] [address] Discharge Disposition: Home or Self Care Social [...] Code Departure Means Destination Home or Self Care documented in this encounter Plan of Treatment Not on file documented as of this encounter Visit Diagnoses Not on filedocumented in this encounter
--- OUTSIDE RECORDS SUMMARY | 2024-09-26 13:11 | XMS_ITS | Encounter Summary ---
Author Organization [facility] Address [address] [place] [address] Care Team Providers Care Steamtable Worker Name Role Phone Unavailable Primary Care Provider Unavailabl e Encounter Details Date Type Department Care Team (Late st Contact Info) Description 06/16/2008 Before PRISM Converted Visit (Maple) [facility] - Maple conversion [address] [place] [address] Alis Tejeda MD [address] [place] [phone] Social History Tobacco Use Types Packs/Day Years [...] Comments HPV DETECTION, HIGH RISK TYPES Routine 06/16/2008 19:08 EDT CYTOPATHOLOGY Routine 06/16/2008 0:00 EDT documented in this encounter Results * HUMAN PAPILLOMA VIRUS DNA TEST (06/16/2008 19:08 EDT) Specimen Description Cervix, ThinPrep vial [facility] Result Negative for HPV types 16, 18, 31, 33, 35, 39, 45, 51, 52, 56, 58, 59, and 68. [facility] Report Status Final [id number] [facility] 06/16/2008 19:0 8 EDT 06/24/2008 7:31 EDT us Alis Tejeda MD MICROBIOLOGY - GENERAL ORDERA BLES Final Result [facility] [address] [place] [address] * CYTOPATHOLOGY (06/16/2008 0:00 EDT) Pathology Report: CYTOPATHOLOGY REPORT ? Reports generated via electronic interface contain original data; ? however they are lacking the format of the original report. ? Caution should be taken when reading/interpreti ng unformatted reports. ? Name: ? TOÑITO GARSIA ? Accession #: ? [id number] ? : ? 1980 (Age: 27) ??F ?Collect Date: ? 06/16/2008 ? Location: ? [facility] ? Receive Date: ? 06/18/2008 ? Provider: ?ALIS N YOON MD ? Copy to: ? Specimen/Source: ?ThinPrep Pap Test, Endocervix, processed on [employer] ? ThinPrep Imaging System, with manual evaluation ? Last Menstrual Period: ? 07/24/08 ? Hormonal/Contracep tive Status: ? Condoms ? Other: ? HPVDX - HPV testing requested regardless of diagnosis on current ThinPrep Pap ?? test. ? SPECIMEN ADEQUACY ? Satisfactory for Evaluation ? - transformation zone component present ? - scant squamous epithelial component secondary to excessive blood ? GENERAL CATEGORIZATION ? Negative for Intraepithelial Lesion or Malignancy ? Document reviewed and electronically signed by: ? Guillermo Raygoza, CT(ASCP) ? Report Date: ??06/23/2008 13:59 ? End of Report ? [facility] 06/16/2008 06/18/2008 us Alis Tejeda MD PATHOLOGY ORDERABLES Final Re sult Performing Organization Address City/State/[facility] Co de Phone Number [facility] [address] [place] [address] documented in this encounter Visit Diagnoses Not on filedocumented in this encounter
--- OUTSIDE RECORDS SUMMARY | 2024-09-26 13:11 | XMS_ITS | Encounter Summary ---
Author Organization [facility] Address [address] [place] [address] Care Team Providers Care Planer Hand Name Role Phone Unknown, Provider Primary Care Provider Unava ilable Encounter Details Date Type Department Care Team (Late st Contact Info) Description 08/21/2006 Results Only [facility] conversion [address] [place] [address] Joy Jang, [facility] [address] [place] [address] [place] [address] Social History Tobacco Use Types [...] Priority Date/Time Associated Diagnosis Comments CYTOPATHOLOGY Routine 08/21/2006 0:00 EDT documented in this encounter Results * CYTOPATHOLOGY (08/21/2006 0:00 EDT) Pathology Report: CYTOPATHOLOGY REPORT Reports generated via electronic interface contain original data; however they are lacking the format of the original report. Caution should be taken when reading/interpreti ng unformatted reports. Name: ? SUN TOÑITO Patrice ? Accession #: ? [id number] : ? 1980 (Age: 26) ??F ?Collect Date: ? 08/21/2006 Location: ? [facility] ? Receive Date: ? 08/22/2006 Provider: ?JOY JANG MICA SPREADER Copy to: ? Specimen/Source: ?ThinPrep Pap Test, Cervix/Endocervix, processed on [employer] ThinPrep Imaging System, with manual evaluation Last Menstrual Period: ? 08/01/06 Previous Gynecologic Pathology: ? ASC-US: 03/10 HPV: Positive Other: ? HPVA - HPV testing requested if ASC-US on the current ThinPrep Pap test. ? SPECIMEN ADEQUACY ? Satisfactory for Evaluation - transformation zone component present GENERAL CATEGORIZATION ? Negative for Intraepithelial Lesion or Malignancy INTERPRETATION ? Reactive cellular changes associated with inflammation present (includes repair). ? Document reviewed and electronically signed by: ? Orlando Caal MD ? Report Date: ??08/28/2006 13:57 End of Report [facility] 08/21/2006 08/22/2006 us Joy Jang MICA SPREADER PATHOLOGY ORDERABLES Final R esult [facility] [address] [place] [address] documented in this encounter Visit Diagnoses Not on filedocumented in this encounter Care Teams Planer Hand Relationship Specialty Start Date End Date Unknown, Provider, PCP - General 07/14/09 11/18/14 documented as of this encounter
--- OUTSIDE RECORDS SUMMARY | 2024-09-26 13:11 | XMS_ITS | Encounter Summary ---
Author Organization [facility] Address [address] [place] [address] Care Team Providers Care Concrete Paving Machine Operator Name Role Phone Unknown, Provider Primary Care Provider Unava ilable Encounter Details Date Type Department Care Team (Late st Contact Info) Description 03/15/2005 Results Only [facility] conversion [address] [place] [address] Joy Jang, [facility] [address] [place] [address] [place] [address] Social History Tobacco Use Types [...] Priority Date/Time Associated Diagnosis Comments CYTOPATHOLOGY Routine 03/15/2005 0:00 EDT documented in this encounter Results * CYTOPATHOLOGY (03/15/2005 0:00 EDT) Pathology Report: CYTOPATHOLOGY REPORT Reports generated via electronic interface contain original data; however they are lacking the format of the original report. Caution should be taken when reading/interpreti ng unformatted reports. Name: ? SUN TOÑITO Patrice ? Accession #: ? [id number] : ? 1980 (Age: 24) ??F ?Collect Date: ? 03/15/2005 Location: ? [facility] ? Receive Date: ? 03/16/2005 Provider: ?JOY JANG MEAT CUTTER APPRENTICE Copy to: ? Specimen/Source: ?ThinPrep Pap Test, Cervix/Endocervix Last Menstrual Period: ? 03/08/05 Other: ? HPVA - HPV testing requested if ASC-US on the current ThinPrep Pap test. ? SPECIMEN ADEQUACY ? Satisfactory for Evaluation - transformation zone component present GENERAL CATEGORIZATION ? Negative for Intraepithelial Lesion or Malignancy ? Document reviewed and electronically signed by: ? ARMIDA Hernández(ASCP) ? Report Date: ??03/22/2005 09:01 End of Report [facility] 03/15/2005 03/16/2005 us Joy Jang MEAT CUTTER APPRENTICE PATHOLOGY ORDERABLES Final R esult [facility] [address] [place] [address] documented in this encounter Visit Diagnoses Not on filedocumented in this encounter Care Teams Concrete Paving Machine Operator Relationship Specialty Start Date End Date Unknown, Provider, PCP - General 07/14/09 11/18/14 documented as of this encounter
--- OUTSIDE RECORDS SUMMARY | 2024-09-26 13:11 | XMS_ITS | Encounter Summary ---
Author Organization [facility] Address [address] [place] [address] Care Team Providers Care Gasoline Attendant Name Role Phone Unknown, Provider Primary Care Provider Unava ilable Encounter Details Date Type Department Care Team (Late st Contact Info) Description 11/16/2014 Results Only [facility] [phone] Franki Gillis MD [address] [place] [address],[address] [place], [place] [id number] Social History Tobacco Use Types Packs/Day Years [...] Procedure Name Priority Date/Time Associated Diagnosis Comments SURGICAL PATHOLOGY Routine 11/16/2014 9:56 EST documented in this encounter Results * SURGICAL PATHOLOGY (11/16/2014 9:56 EST) Pathology Report: SURGICAL PATHOLOGY REPORT Reports generated via electronic interface contain original data; however they are lacking the format of the original report. Caution should be taken when reading/interpret ing unformatted reports. Name: ? TOÑITO NUNEZ ? Accession #: ? [id number] ? : ? 1980 (Age: 34) ??F ? Collect Date: ? 11/16/2014 ? Location: ? [facility] ? Receive Date: ? 11/17/2014 ? Provider: FRANKI GILLIS MD Copy to: DANITA LAKE MD ? Final Pathologic Diagnosis: INTRAUTERINE CONTENTS, EVACUATION: - ??Products of conception: ? - ??Vascularized chorionic villi with focal intervillous fibrin deposition. ? - ??Decidua. ? - ??Gestational endometrium. ? - ?? tissue. Document reviewed and electronically signed by: Micha Jean Baptiste MD Report ??Date: 11/19/2014 15:39 By the signature above, the attending physician certifies that he/she has personally conducted a gross and/or microscopic examination of the described specimens and rendered or confirmed the above diagnosis. Specimen(s) Received: Products of conception Clinical History: Embryonic demise at 9 weeks, 4 days Gross Description: ? Received in formalin labelled with proper patient identification (initials R, J) and products of conception is an aggregate of pollock-red, focally hemorrhagic tissue fragments (9.0 x 8.5 x 2.0 cm) containing probable villous tissue. ??Minimal tissue is identified, including bilateral hands, each with five digits (hand length 0.3 cm). Electric Locomotive Firer/Fireman sections are submitted in 1-3. Shivani Vargas 11/17/2014 10:57 AM End of Report [facility] 11/16/2014 9:56 EST 11/17/2014 9:56 EST us Franki Gillis MD PATHOLOGY ORDERABLES Final Res ult [facility] [address] [place] [address] documented in this encounter Visit Diagnoses Not on filedocumented in this encounter Care Teams Gasoline Attendant Relationship Specialty Start Date End Date Unknown, Provider, PCP - General 07/14/09 11/18/14 documented as of this encounter
--- OUTSIDE RECORDS SUMMARY | 2024-09-26 13:11 | XMS_ITS | Encounter Summary ---
Author Organization [facility] Address [address] [place] [address] Care Team Providers Care Final Inspector Motorcyles Name Role Phone Christian Cummings MD Primary Care Provider [phone] Encounter Details Date Type Department Care Team (Late st Contact Info) Description 04/22/2015 Results Only [facility] [phone] Maria Esther Hatfield, [address] [phone] Social History Tobacco Use Types Packs/Day Years [...] Name Priority Date/Time Associated Diagnosis Comments PAP TEST- RESULT ONLY Routine 04/22/2015 0:00 EDT documented in this encounter Results * PAP TEST- RESULT ONLY (04/22/2015 0:00 EDT) Pathology Report: CYTOPATHOLOGY REPORT Reports generated via electronic interface contain original data; however they are lacking the format of the original report. Caution should be taken when reading/interpreti ng unformatted reports. Name: ? TOÑITO NUNEZ ? Accession #: ? [id number] ? : ? 1980 (Age: 34) ??F ?Collect Date: ? 04/22/2015 ? Location: ? [facility] ? Receive Date: ? 04/23/2015 ? Provider: MARIA ESTHER HATFIELD CN Copy to: CHRISTIAN CUMMINGS MD ? Final Report SPECIMEN ADEQUACY ? Satisfactory for Evaluation - transformation zone component present GENERAL CATEGORIZATION ? Negative for Intraepithelial Lesion or Malignancy INTERPRETATION ? Reactive cellular changes associated with inflammation present (includes repair). Last Menstrual Period: 02/18/15 Menstrual/Pregnanc y Status: ?? Previous Gynecologic Pathology: ASC-US: 03/10 HPV Specimen/Source: ??Pap Test, Cervix, ThinPrep Imaging System with manual evaluation Document reviewed and electronically signed by: ? EZEKIEL GARRIDO MD [facility] ? Report ??Date: 05/04/2015 18:44 HPV with Pap Test ? Date Ordered: ? 05/04/2015 ? Status: ?? Signed Out ?Date Complete: ? 05/07/2015 ? By: ??System Interface ? Date Reported: ? 05/07/2015 ? Interpretation RESULT: Negative for HPV. No E6 or E7 mRNA is detected from HPV types 16,18,31,33,35, 39,45,51,52,56,58, 59,66, and 68 by rougher for cement mediated amplification. Comments Document reviewed and electronically signed by: ? System Interface ? Report date: 05/07/2015 By the signature above, the attending physician certifies that he/she has personally conducted a gross and/or microscopic examination of the described specimens and rendered or confirmed the above diagnosis. End of Report [facility] 04/22/2015 04/23/2015 us Maria Esther Hatfield [facility] PATHOLOGY ORDERABLES F inal Result [facility] [address] [place] [address] documented in this encounter Visit Diagnoses Not on filedocumented in this encounter Care Teams Final Inspector Motorcyles Relationship Specialty Start Date End Date Christian Cummings MD [address] [place] [address] PCP - General 11/19/14 documented as of this encounter
--- OUTSIDE RECORDS SUMMARY | 2024-09-26 13:11 | XMS_ITS | Encounter Summary ---
Author Organization [facility] Address [address] [place] [address] Care Team Providers Care Signals Intelligence Analysis Manager Name Role Phone Unknown, Provider Primary Care Provider Unava ilable Encounter Details Date Type Department Care Team (Late st Contact Info) Description 01/28/2010 Results Only [facility] Laboratory Services - [facility] ([facility]) [address] [place], [place] [id number] [place] [address] Social History Tobacco Use Types Packs/Day Years [...] Priority Date/Time Associated Diagnosis Comments CYTOPATHOLOGY Routine 01/28/2010 0:00 EDT documented in this encounter Results * CYTOPATHOLOGY (01/28/2010 0:00 EDT) Pathology Report: CYTOPATHOLOGY REPORT ? Reports generated via electronic interface contain original data; ? however they are lacking the format of the original report. ? Caution should be taken when reading/interpreti ng unformatted reports. ? Name: ? TOÑITO GARSIA ? Accession #: ? [id number] ? : ? 1980 (Age: 29) ??F ?Collect Date: ? 01/28/2010 ? Location: ? [facility] ? Receive Date: ? 01/31/2010 ? Provider: ?XAVI HUNT CNM ? Copy to: ? Specimen/Source: ?Pap Test, Cervix/Endocervix, ThinPrep Imaging System ? with manual evaluation ? Last Menstrual Period: ? 5/10/09 ? Menstrual/Pregnanc y Status: ? Post ? Previous Gynecologic Pathology: ? ASC-US: 5/06 ? HPV: + 5/06, pap 10/07, 8/08 negative ? Other: ? HPVA - HPV testing requested if ASC-US on the current ThinPrep Pap test. ? SPECIMEN ADEQUACY ? Satisfactory for Evaluation ? - transformation zone component present ? GENERAL CATEGORIZATION ? Negative for Intraepithelial Lesion or Malignancy ? Document reviewed and electronically signed by: ? Marcio Stumler, CT(ASCP) ? Report Date: ??02/01/2010 15:26 ? End of Report ? [facility] 01/28/2010 01/31/2010 us Xavi Hunt CNM PATHOLOGY ORDERABLES Final Res ult [facility] [address] [place] [address] documented in this encounter Visit Diagnoses Not on filedocumented in this encounter Care Teams Signals Intelligence Analysis Manager Relationship Specialty Start Date End Date Unknown, Provider, PCP - General 07/14/09 11/18/14 documented as of this encounter
--- OUTSIDE RECORDS SUMMARY | 2024-09-26 13:11 | XMS_ITS | Encounter Summary ---
Author Organization [facility] Address [address] [place] [address] Care Team Providers Care Supervisor Process Testing Name Role Phone Unknown, Provider Primary Care Provider Unava ilable Encounter Details Date Type Department Care Team (Late st Contact Info) Description 03/07/2012 Results Only [facility] - [facility] [address] [place], [place] [phone] Joy Jang, [facility] [address] [place] [address] [place] [address] Social History Tobacco Use Types [...] Diagnosis Comments PAP TEST- RESULT ONLY Routine 03/07/2012 0:00 EDT documented in this encounter Results * PAP TEST- RESULT ONLY (03/07/2012 0:00 EDT) Pathology Report: CYTOPATHOLOGY REPORT Reports generated via electronic interface contain original data; however they are lacking the format of the original report. Caution should be taken when reading/interpreti ng unformatted reports. Name: ? TOÑITO GARSIA ? Accession #: ? [id number] : ? 1980 (Age: 31) ??F ?Collect Date: ? 03/07/2012 Location: ? [facility] ? Receive Date: ? 03/11/2012 Provider: ?JOY JANG BACKING IN MACHINE TENDER Copy to: ?DANITA LAKE MD ? Specimen/Source: ?Pap Test, Cervix/Endocervix, ThinPrep Imaging System with manual evaluation Last Menstrual Period: ? 02/26/12 Previous Gynecologic Pathology: ? ASC-US: 03/10 HPV: 03/10 Other: ? Additional clinical information: paps negative since 03/10 ? SPECIMEN ADEQUACY ? Satisfactory for Evaluation - transformation zone component present GENERAL CATEGORIZATION ? Negative for Intraepithelial Lesion or Malignancy INTERPRETATION ? Reactive cellular changes associated with inflammation present (includes repair). ? Document reviewed and electronically signed by: ? OTTO LEON MD ? Report Date: ??03/15/2012 14:03 End of Report [facility] 03/07/2012 03/11/2012 us Joy Jang BACKING IN MACHINE TENDER PATHOLOGY ORDERABLES Final R esult [facility] [address] [place] [address] documented in this encounter Visit Diagnoses Not on filedocumented in this encounter Care Teams Supervisor Process Testing Relationship Specialty Start Date End Date Unknown, Provider, PCP - General 07/14/09 11/18/14 documented as of this encounter
[2024-09-26 14:53] LABS: TSH (W/Ref FT4) 0.79 uIU/mL (0.36-3.74)
== END 2024-09-26 13:10 | disposition home or self-care (01) ==
LOC: NCHCN 13:09
PROVIDERS: PCP Internal Medicine; Visit Provider Family Medicine
DX: E03.9 Hypothyroidism, unspecified (principal)
CPT/HCPCS: 84443

== ENCOUNTER 2024-10-17 00:41 | Outpatient (CLI) | payer BC, SELFPAY ==
--- OUTSIDE RECORDS SUMMARY | 2024-10-17 00:58 | XMS_ITS | Encounter Summary ---
Author Organization [facility] Address [address] [place] [address] Care Team Providers Care Correctional Food Service Supervisor Name Role Phone Unavailable Primary Care Provider Unavailabl e Encounter Details Date Type Department Care Team (Late st Contact Info) Description 06/16/2008 Before PRISM Converted Visit (Maple) [facility] - [facility] conversion [address] [place] [address] Alis Tejeda MD [address] [place] [phone] Social History Tobacco Use Types Packs/Day [...] 68. [facility] Report Status Final [id number] [facility] 06/16/2008 19:0 8 EDT 06/24/2008 7:31 EDT us Alis Tejeda MD MICROBIOLOGY - GENERAL ORDERA BLES Final Result [facility] [address] [place] [address] * CYTOPATHOLOGY (06/16/2008 0:00 EDT) Pathology Report: CYTOPATHOLOGY REPORT ? Reports generated via electronic interface contain original data; ? however they are lacking the format of the original report. ? Caution should be taken when reading/interpreti ng unformatted reports. ? Name: ? TOÑITO GARSIA ? Accession #: ? [id number] ? : ? 1980 (Age: 27) ??F [...] ORDERABLES Final Re sult Performing Organization Address City/State/[facility] Co de Phone Number [facility] [address] [place] [address] documented in this encounter Visit Diagnoses Not on filedocumented in this encounter
--- OUTSIDE RECORDS SUMMARY | 2024-10-17 00:58 | XMS_ITS | Referral Summary ---
Author Organization [facility] Address [address] [place] [address] Care Team Providers Care Casino Floor Supervisor Name Role Phone Christian Cummings MD Primary Care Provider [phone] Social History Tobacco Use Types Packs/Day Years Used Date Smoking Tobacco: Never Assessed Comments Unknown Sex and Gender Information Value Date Recorded Sex Assigned at Not on file Legal Sex Female 18:33 EST Gender Identity Not on file Sexual Orientation Not on file Plan of Treatment Not on file Care Teams Casino Floor Supervisor Relationship Specialty Start Date End Date Christian Cummings MD [address] [place] [address] PCP - General 11/19/14
--- OUTSIDE RECORDS SUMMARY | 2024-10-17 00:58 | XMS_ITS | Encounter Summary ---
Author Organization [facility] Address [address] [place] [address] Care Team Providers Care Weblogic Administrator Name Role Phone Unknown, Provider Primary Care Provider Unava ilable Encounter Details Date Type Department Care Team (Late st Contact Info) Description 01/28/2010 Results Only [facility] Laboratory Services - [facility] ([facility]) [address] [place], [place] [phone] [place] [address] Social History Tobacco Use Types [...] ? TOÑITO GARSIA ? Accession #: ? [id number] ? : ? 1980 (Age: 29) ??F [...] Final Res ult [facility] [address] [place] [address] documented in this encounter Visit Diagnoses Not on filedocumented in this encounter Care Teams Weblogic Administrator Relationship Specialty Start Date End Date Unknown, Provider, PCP - General 07/14/09 11/18/14 documented as of this encounter
--- OUTSIDE RECORDS SUMMARY | 2024-10-17 00:58 | XMS_ITS | Clinical Summary ---
[place] [address] Care Team Providers Care Rn Women Services Name Role Phone Unavailable Primary Care Provider [...]
--- OUTSIDE RECORDS SUMMARY | 2024-10-17 00:58 | XMS_ITS | Encounter Summary ---
Author Organization [facility] Address [address] [place] [address] Care Team Providers Care Surgical Technology Instructor Name Role Phone Unknown, Provider Primary Care Provider Unava ilable Encounter Details Date Type Department Care Team (Late st Contact Info) Description 03/07/[address] [facility] Laboratory Services - [facility] [place] [facility] [address] [place], [place] [phone] Joy Jang, [address] [place] [address] Social History Tobacco Use Types [...] ? TOÑITO GARSIA ? Accession #: ? [id number] : ? 1980 (Age: 31) ??F ?Collect Date: ? 03/07/2012 Location: ? [facility] ? Receive Date: ? 03/11/2012 Provider: ?JOY JANG SENIOR BUSINESS MANAGER Copy to: ?DANITA LAKE MD ? Specimen/Source: [...] [facility] 03/07/2012 03/11/2012 us Joy Jang SENIOR BUSINESS MANAGER PATHOLOGY ORDERABLES Final R esult [facility] [address] [place] [address] documented in this encounter Visit Diagnoses Not on filedocumented in this encounter Care Teams Surgical Technology Instructor Relationship Specialty Start Date End Date Unknown, Provider, PCP - General 07/14/09 11/18/14 documented as of this encounter
--- OUTSIDE RECORDS SUMMARY | 2024-10-17 00:58 | XMS_ITS | Encounter Summary ---
Author Organization [facility] Address [address] [place] [address] Care Team Providers Care Liquid Floor And Wall Applier Name Role Phone Unknown, Provider Primary Care Provider Unava ilable Encounter Details Date Type Department Care Team (Late st Contact Info) Description 08/21/2006 Results Only [facility] conversion [address] [place] [address] Joy Jang, [facility] [address] [place] [address] [place] [address] Social History Tobacco Use Types [...] SUN TOÑITO Patrice ? Accession #: ? [id number] : ? 1980 (Age: 26) ??F ?Collect Date: ? 08/21/2006 Location: ? [facility] ? Receive Date: ? 08/22/2006 Provider: ?JOY JANG FIXED WING AIRCRAFT CREW CHIEF Copy to: ? Specimen/Source: ?ThinPrep Pap Test, Cervix/Endocervix, processed on Photomedex ThinPrep Imaging System, with manual evaluation Last [...] [facility] 08/21/2006 08/22/2006 us Joy Jang FIXED WING AIRCRAFT CREW CHIEF PATHOLOGY ORDERABLES Final R esult [facility] [address] [place] [address] documented in this encounter Visit Diagnoses Not on filedocumented in this encounter Care Teams Liquid Floor And Wall Applier Relationship Specialty Start Date End Date Unknown, Provider, PCP - General 07/14/09 11/18/14 documented as of this encounter
--- OUTSIDE RECORDS SUMMARY | 2024-10-17 00:58 | XMS_ITS | Encounter Summary ---
Author Organization [facility] Address [address] [place] [address] Care Team Providers Care Board Finisher Name Role Phone Unknown, Provider Primary Care Provider Unava ilable Encounter Details Date Type Department Care Team (Latest Contact Info) Description 11/16/2014 9:52 EST - 11/16/2014 23:59 EST Hospital Encounter [address] [address] Unknown, Provider, Discharge Disposition: Home or Self [...] Code Departure Means Destination Home or Self [facility] documented in this encounter Plan of Treatment Not on file documented as of this encounter Visit Diagnoses Not on filedocumented in this encounter Care Teams Board Finisher Relationship Specialty Start Date End Date Unknown, Provider, PCP - General 07/14/09 11/18/14 documented as of this encounter
--- OUTSIDE RECORDS SUMMARY | 2024-10-17 00:58 | XMS_ITS | Encounter Summary ---
Author Organization [facility] Address [address] [place] [address] Care Team Providers Care Combination Machine Tender Name Role Phone Unknown, Provider Primary Care Provider Unava ilable Encounter Details Date Type Department Care Team (Late st Contact Info) Description 03/15/2005 Results Only [facility] conversion [address] [place] [address] Joy Jang, [facility] [address] [place] [address] [place] [address] Social History Tobacco Use Types [...] SUN TOÑITO Patrice ? Accession #: ? [id number] : ? 1980 (Age: 24) ??F ?Collect Date: ? 03/15/2005 Location: ? [facility] ? Receive Date: ? 03/16/2005 Provider: ?JOY JANG PLATE DEVELOPER Copy to: ? Specimen/Source: ?ThinPrep Pap Test, [...] [facility] 03/15/2005 03/16/2005 us Joy Jang PLATE DEVELOPER PATHOLOGY ORDERABLES Final R esult [facility] [address] [place] [address] documented in this encounter Visit Diagnoses Not on filedocumented in this encounter Care Teams Combination Machine Tender Relationship Specialty Start Date End Date Unknown, Provider, PCP - General 07/14/09 11/18/14 documented as of this encounter
--- OUTSIDE RECORDS SUMMARY | 2024-10-17 00:58 | XMS_ITS | Encounter Summary ---
Author Organization [facility] Address [address] [place] [address] Care Team Providers Care Supply Chain Engineer Name Role Phone Unknown, Provider Primary Care Provider Unava ilable Encounter Details Date Type Department Care Team (Late st Contact Info) Description 03/08/2004 Results Only [facility] conversion [address] [place] [address] Joy Jang, [facility] [address] [place] [address] [place] [address] Social History Tobacco Use Types [...] SUN TOÑITO Patrice ? Accession #: ? [id number] : ? 1980 (Age: 23) ??F ?Collect Date: ? 03/08/2004 Location: ? [facility] ? Receive Date: ? 03/09/2004 Provider: ?JOY JANG TIGER MACHINE OPERATOR Copy to: ? Specimen/Source: ?ThinPrep Pap Test, [...] [facility] 03/08/2004 03/09/2004 us Joy Jang TIGER MACHINE OPERATOR PATHOLOGY ORDERABLES Final R esult [facility] [address] [place] [address] documented in this encounter Visit Diagnoses Not on filedocumented in this encounter Care Teams Supply Chain Engineer Relationship Specialty Start Date End Date Unknown, Provider, PCP - General 07/14/09 11/18/14 documented as of this encounter
--- OUTSIDE RECORDS SUMMARY | 2024-10-17 00:58 | XMS_ITS | Encounter Summary ---
Author Organization [facility] Address [address] [place] [address] Care Team Providers Care Animation Producer Name Role Phone Unknown, Provider Primary Care Provider Unava ilable Encounter Details Date Type Department Care Team (Late st Contact Info) Description 03/20/2006 Results Only [facility] - Map conversion [address] [place] [address] Joy Jang, [facility] [address] [place] [address] [place] [address] Social History Tobacco Use Types [...] cancers. [facility] Report Status Final [id number] [facility] 03/20/2006 8:40 EDT 03/27/2006 11:40 EDT Joy Jang ENTRY LEVEL CHEMIST MICROBIOLOGY - GENERAL ORDER NACHO Final Result [facility] [address] [place] [address] * CYTOPATHOLOGY (03/20/2006 0:00 EDT) Pathology Report: CYTOPATHOLOGY REPORT Reports generated via electronic interface contain original data; however they are lacking the format of the original report. Caution should be taken when reading/interpreti ng unformatted reports. Name: ? TOÑITO GARSIA ? Accession #: ? [id number] : ? 1980 (Age: 25) ??F ?Collect Date: ? 03/20/2006 Location: ? [facility] ? Receive Date: ? 03/21/2006 Provider: ?JOY JANG ENTRY LEVEL CHEMIST Copy to: ? Specimen/Source: ?ThinPrep Pap Test, Cervix/Endocervix, processed on Euroling ThinPrep Imaging System, with manual evaluation Last [...] cells, undetermined significance. EDUCATIONAL NOTES/RECOMMENDATI ONS ? [facility] recommends following the 2001 Consensus Guidelines for the Management of Women with Cervical Cytological Abnormalities (ANGY,2002;287:212 0-9). Management algorithms have been distributed by [facility] and are available online at www.ASCCP.org. ? Document reviewed and electronically signed by: ? REID CARSON MD ? Report Date: ??03/26/2006 13:08 End of Report [facility] 03/20/2006 03/21/2006 us Joy Jang ENTRY LEVEL CHEMIST PATHOLOGY ORDERABLES Final R esult [facility] [address] [place] [address] documented in this encounter Visit Diagnoses Not on filedocumented in this encounter Care Teams Animation Producer Relationship Specialty Start Date End Date Unknown, Provider, PCP - General 07/14/09 11/18/14 documented as of this encounter
--- OUTSIDE RECORDS SUMMARY | 2024-10-17 00:58 | XMS_ITS | Encounter Summary ---
Author Organization [facility] Address [address] [place] [address] Care Team Providers Care Mobile Paint Specialist Name Role Phone Christian Cummings MD Primary Care Provider [phone] Encounter Details Date Type Department Care Team (Late st Contact Info) Description 11/02/2020 Lab Requisition [facility] Pathology & Laboratory Medicine - [address] [address] Outr Resulting Lab, Provider Social History Tobacco [...] MICROBIOLOGY - GENER AL ORDERABLES Final Result [facility] [address] [place] [address] * COVID-19 TESTING (11/01/2020 16:05 EST) COVID-19 rt-PCR Result Negative Negative 11/03/2020 14:44 EST [facility] Comment: Negative results do not preclude 2019-nCoV infection and should not be used as the sole basis for treatment or other patient management decisions. Negative results must be combined with clinical observations, patient history, and epidemiological information. This test was developed and its performance characteristics determined by [facility]. It has not been cleared or approved [...] defined by the FDA Performed on the Lingvist 7 Flex. Performing Lab GFRANQstudio 7 [facility] 11/03/2020 14:44 EST [facility] Swab 11/01/2020 16:0 5 EST 11/02/2020 16:07 EST us Provider Outr Resulting Lab MICROBIOLOGY - GENER AL ORDERABLES Final Result [facility] [address] [place] [address] documented in this encounter Visit Diagnoses Not on filedocumented in this encounter Care Teams Mobile Paint Specialist Relationship Specialty Start Date End Date Christian Cummings MD [address] [place] [address] PCP - General 11/19/14 documented as of this encounter
--- OUTSIDE RECORDS SUMMARY | 2024-10-17 00:58 | XMS_ITS | Encounter Summary ---
Author Organization [facility] Address [address] [place] [address] Care Team Providers Care Devops Architect Name Role Phone Unknown, Provider Primary Care Provider Unava ilable Encounter Details Date Type Department Care Team (Late st Contact Info) Description 11/16/2014 Results Only [facility] [phone] Franki Gillis MD [address] [place] [address],[address] [place], [place] [phone] Social History Tobacco Use Types Packs/Day Years [...] ? TOÑITO NUNEZ ? Accession #: ? [id number] ? : ? 1980 (Age: 34) ??F [...] with five digits (hand length 0.3 cm). Education Finance Processor sections are submitted in 1-3. Shivani Vargas 11/17/2014 10:57 AM End of Report [facility] 11/16/2014 9:56 EST 11/17/2014 9:56 EST us Franki Gillis MD PATHOLOGY ORDERABLES Final Res ult [facility] [address] [place] [address] documented in this encounter Visit Diagnoses Not on filedocumented in this encounter Care Teams Devops Architect Relationship Specialty Start Date End Date Unknown, Provider, PCP - General 07/14/09 11/18/14 documented as of this encounter
--- OUTSIDE RECORDS SUMMARY | 2024-10-17 00:58 | XMS_ITS | Clinical Summary ---
Author Organization [facility] Address [address] [place] [address] Care Team Providers Care Flume Ride Operator Name Role Phone Christian Cummings MD Primary Care Provider [phone] Social History Tobacco Use Types Packs/Day Years [...] COVID-19 Vaccine ( season) 2024 Care Teams Flume Ride Operator Relationship Specialty Start Date End Date Christian Cummings MD [address] [place] [address] PCP - General 11/19/14
--- OUTSIDE RECORDS SUMMARY | 2024-10-17 00:58 | XMS_ITS | Encounter Summary ---
Author Organization [facility] Address [address] [place] [address] Care Team Providers Care Medical Translator Name Role Phone Christian Cummings MD Primary Care Provider [phone] Encounter Details Date Type Department Care Team (Late st Contact Info) Description 01/24/2020 Lab Requisition [facility] Pathology & Laboratory Medicine - [address] [address] Jorge Luis Lloyd MD [address] [place] [phone] Encounter for other general examination Social [...] Not Detected Not Detected 02/04/2020 20:55 EDT [facility] Comment:Assayed by [facility], [place], [place] Swab ENTIRE NASOPHARYNX / Unknown 01/22/2020 20:00 EDT 01/24/2020 13:24 EDT us Jorge Luis Lloyd MD MICROBIOLOGY - GENERAL CAITY MCELROY Final Result [facility] [address] [place] [address] documented in this encounter Visit Diagnoses Diagnosis Encounter for other general examination documented in this encounter Care Teams Medical Translator Relationship Specialty Start Date End Date Christian Cummnigs MD [address] [place] [id number] PCP - General 11/19/14 documented as of this encounter
--- OUTSIDE RECORDS SUMMARY | 2024-10-17 00:58 | XMS_ITS | Encounter Summary ---
[place] [address] Care Team Providers Care Recording Studio Intern Name Role Phone Unavailable Primary Care Provider Unavailabl e Encounter Details Date Type Department Care Team (Latest Contact Info) Description 09/20/2020 8:39 PM EST - 09/20/2020 11:59 PM EST Hospital Encounter [place] [address] Discharge Disposition: Home Social History Tobacco Use [...]
--- OUTSIDE RECORDS SUMMARY | 2024-10-17 00:58 | XMS_ITS | Encounter Summary ---
Author Organization [facility] Address [address] [place] [address] Care Team Providers Care Photovoltaic Technician Name Role Phone Christian Cummings MD Primary Care Provider [phone] Encounter Details Date Type Department Care Team (Late st Contact Info) Description 10/19/2020 Lab Requisition [facility] Pathology & Laboratory Medicine - [address] [id number] Outr Resulting Lab, Provider Social History Tobacco [...] in accordance with CLIA regulations, [employer] (CAP) guidelines (Jan 22, 2020), and FDA guidance (Jan 03, 2020). This test is only for use under the Food and Drug Administration's Emergency Use Authorization. Swab ENTIRE NASOPHARYNX / Unknown 10/18/2020 12:35 EST 10/19/2020 16:10 EST us Provider Outr Resulting Lab MICROBIOLOGY - GENER AL ORDERABLES Final Result [facility] [place], [place] * COVID-19 TESTING (10/18/2020 12:35 EST) COVID-19 rt-PCR Result NEGATIVE Negative 10/21/2020 21:19 EST [facility] Comment: 2019-novel Coronavirus (2019-nCoV) not detected [...] in accordance with CLIA regulations, [employer] (CAP) guidelines (Jan 22, 2020), and FDA guidance (Jan 03, 2020). This test is only for use under the Food and Drug Administration's Emergency Use Authorization. Performing Lab [facility] 10/21/2020 21:19 EST [facility] Swab 10/18/2020 12:3 5 EST 10/19/2020 16:10 EST us Provider Outr Resulting Lab MICROBIOLOGY - GENER AL ORDERABLES Final Result [facility] [address] [place] [address] [facility] [place], [place] documented in this encounter Visit Diagnoses Not on filedocumented in this encounter Care Teams Photovoltaic Technician Relationship Specialty Start Date End Date Christian Cummings MD [address] [place] [id number] PCP - General 11/19/14 documented as of this encounter
--- OUTSIDE RECORDS SUMMARY | 2024-10-17 00:58 | XMS_ITS | Encounter Summary ---
Author Organization [facility] Address [address] [place] [address] Care Team Providers Care Mechanic Marine Engine Name Role Phone Christian Cummings MD Primary Care Provider [phone] Encounter Details Date Type Department Care Team (Late st Contact Info) Description 11/15/2020 Lab Requisition [facility] Pathology & Laboratory Medicine - [address] [id number] Outr Resulting Lab, Provider Social History Tobacco [...] in accordance with CLIA regulations, [employer] (CAP) guidelines (Jan 22, 2020), and FDA guidance (Jan 03, 2020). This test is only for use under the Food and Drug Administration's Emergency Use Authorization. Swab ENTIRE NASOPHARYNX / Unknown 11/15/2020 12:39 EST 11/15/2020 21:06 EST us Provider Outr Resulting Lab MICROBIOLOGY - GENER AL ORDERABLES Final Result [facility] [place], [place] * COVID-19 TESTING (11/15/2020 12:39 EST) COVID-19 rt-PCR Result NEGATIVE Negative 11/16/2020 21:40 EST [facility] Comment: 2019-novel Coronavirus (2019-nCoV) not [...] in accordance with CLIA regulations, [employer] (CAP) guidelines (Jan 22, 2020), and FDA guidance (Jan 03, 2020). This test is only for use under the Food and Drug Administration's Emergency Use Authorization. Performing Lab [facility] 11/16/2020 21:40 EST [facility] Swab 11/15/2020 12:3 9 EST 11/15/2020 21:06 EST us Provider Outr Resulting Lab MICROBIOLOGY - GENER AL ORDERABLES Final Result [facility] [address] [place] [address] [facility] [place], [place] documented in this encounter Visit Diagnoses Not on filedocumented in this encounter Care Teams Mechanic Marine Engine Relationship Specialty Start Date End Date Christian Cummings MD [address] [place] [id number] PCP - General 11/19/14 documented as of this encounter
--- OUTSIDE RECORDS SUMMARY | 2024-10-17 00:58 | XMS_ITS | Encounter Summary ---
Author Organization [facility] Address [address] [place] [address] Care Team Providers Care Diesel Locomotive Firer/Fireman Name Role Phone Christian Cummings MD Primary Care Provider [phone] Encounter Details Date Type Department Care Team (Late st Contact Info) Description 02/04/2021 Lab Requisition [facility] Pathology & Laboratory Medicine - [address] [address] Joy Jang, [address] [place] [address] Encounter for other general examination [...] types, PCR Negative Negative 02/11/2021 14:59 EDT [facility] Comment:No E6 or E7 mRNA is detected from HPV types 16,18,31,33,35,39,45,51,52,56,58,59,66, and 68 by spring winder mediated amplification. Papanicolaou smear specimen (specimen) CERVIX UTERI STRUCTURE / Unknown 02/03/2021 9:30 EDT 02/10/2021 10:58 EDT Joy Jang SOLID WASTE TECHNICIAN MICROBIOLOGY - GENERAL ORDER NACHO Final Result [facility] [address] [place] [address] * PAP TEST (02/03/2021 9:30 EDT) Specimens A. Cervix and/or Endocervix , ThinPrep Imaging System with Manual Evaluation 02/11/2021 14:59 EDT [facility] Specimen Adequacy Satisfactory for Evaluation - transformation zone component present 02/11/2021 14:59 EDT [facility] General Categorization Negative for intraepithelial lesion or malignancy 02/11/2021 14:59 EDT [facility] Attestation . 02/11/2021 14:59 T [facility] at 1459 Clinical History See below 02/12/20 21 14:59 EDT [facility] HPV The result for the Human Papillomavirus (HPV) Detection-High Risk Types is Negative. No E6 or E7 mRNA is detected from HPV types 16,18,31,33,35,39 ,45,51,52,56,58,5 9,66, and 68 by spring winder mediated amplification.Davina ting was performed on specimen [id number] and was resulted on 02/11/2021 1457 EDT by GABRIELLE, LAB INSTRUMENT RESULTS IN 02/11/2021 14:59 EDT [facility] Performing Lab [facility] 02/11/2021 14:59 EDT [facility] Scanned Images 02/11/2021 14:59 EDT [facility] Papanicolaou smear specimen (specimen) CERVIX UTERI STRUCTURE / Unknown 02/03/2021 9:30 EDT 02/04/2021 9:12 EDT Joy Jang SOLID WASTE TECHNICIAN PATHOLOGY ORDERABLES Final R esult [facility] [address] [place] [address] documented in this encounter Visit Diagnoses Diagnosis Encounter for other general examination documented in this encounter Care Teams Diesel Locomotive Firer/Fireman Relationship Specialty Start Date End Date Christian Cummings MD [address] [place] [id number] PCP - General 11/19/14 documented as of this encounter
--- OUTSIDE RECORDS SUMMARY | 2024-10-17 00:58 | XMS_ITS | Encounter Summary ---
Author Organization [facility] Address [address] [place] [address] Care Team Providers Care Laborer Brush Clearing Name Role Phone Christian Cummings MD Primary Care Provider [phone] Encounter Details Date Type Department Care Team (Late st Contact Info) Description 04/22/2015 Results Only [facility] [phone] Maria Esther Hatfield, [address] [phone] Social History Tobacco Use Types [...] ? TOÑITO NUNEZ ? Accession #: ? [id number] ? : ? 1980 (Age: 34) ??F [...] electronically signed by: ? EZEKIEL GARRIDO MD [facility] ? Report ??Date: 05/04/2015 18:44 HPV with Pap Test ? Date Ordered: ? 05/04/2015 ? Status: ?? Signed Out ?Date Complete: ? 05/07/2015 ? By: ??System Interface ? Date Reported: ? 05/07/2015 ? Interpretation RESULT: Negative for HPV. No E6 or E7 mRNA is detected from HPV types 16,18,31,33,35, 39,45,51,52,56,58, 59,66, and 68 by lip and gate builder mediated amplification. Comments Document reviewed and electronically signed by: ? System Interface ? Report date: 05/07/2015 By the signature above, the attending physician certifies that he/she has personally conducted a gross and/or microscopic examination of the described specimens and rendered or confirmed the above diagnosis. End of Report [facility] 04/22/2015 04/23/2015 us Maria Esther Hatfield [facility] PATHOLOGY ORDERABLES F inal Result [facility] [address] [place] [address] documented in this encounter Visit Diagnoses Not on filedocumented in this encounter Care Teams Laborer Brush Clearing Relationship Specialty Start Date End Date Christian Cummings MD [address] [place] [phone] PCP - General 11/19/14 documented as of this encounter
--- OUTSIDE RECORDS SUMMARY | 2024-10-17 00:58 | XMS_ITS | Encounter Summary ---
Author Organization [facility] Address [address] [place] [address] Care Team Providers Care Professor Of Literature Name Role Phone Christian Cummings MD Primary Care Provider [phone] Encounter Details Date Type Department Care Team (Late st Contact Info) Description 04/20/2020 Lab Requisition [facility] Pathology & Laboratory Medicine - [address] [address] Outr Resulting Lab, Provider Social History Tobacco [...] rt-PCR Result NEGATIVE Negative 04/21/2020 22:45 EDT [facility] Comment: 2019-novel Coronavirus (2019-nCoV) not [...] in accordance with CLIA regulations, [employer] (CAP) guidelines (Jan 22, 2020), and FDA guidance (Jan 03, 2020). This test is only for use under the Food and Drug Administration's Emergency Use Authorization. Swab ENTIRE NASOPHARYNX / Unknown 04/20/2020 8:45 EDT 04/20/2020 19:28 EDT us Provider Outr Resulting Lab MICROBIOLOGY - GENER AL ORDERABLES Final Result [facility] [place], [place] * COVID-19 TESTING (04/20/2020 8:45 EDT) Pathologist [facility] COVID-19 rt-PCR Result NEGATIVE Negative 04/22/2020 7:04 EDT [facility] Comment: 2019-novel Coronavirus (2019-nCoV) not [...] in accordance with CLIA regulations, [employer] (CAP) guidelines (Jan 22, 2020), and FDA guidance (Jan 03, 2020). This test is only for use under the Food and Drug Administration's Emergency Use Authorization. Performing Lab [facility] 04/22/2020 7:04 EDT [facility] Swab ENTIRE NASOPHARYNX / Unknown 04/20/2020 8:45 EDT 04/20/2020 19:28 EDT us Provider Outr Resulting Lab MICROBIOLOGY - GENER AL ORDERABLES Final Result [facility] [address] [place] [address] [facility] [place], [place] documented in this encounter Visit Diagnoses Not on filedocumented in this encounter Care Teams Professor Of Literature Relationship Specialty Start Date End Date Christian Cummings MD [address] [place] [phone] PCP - General 11/19/14 documented as of this encounter
--- OUTSIDE RECORDS SUMMARY | 2024-10-17 00:58 | XMS_ITS | Encounter Summary ---
Author Organization [facility] Address [address] [place] [address] Care Team Providers Care Salesperson Corsets Name Role Phone Unavailable Primary Care Provider Unavailabl e Encounter Details Date Type Department Care Team (Latest Contact Info) Description 07/13/2009 14:04 EDT - 07/13/2009 14:06 EDT Hospital Encounter [facility] - Other [address] [place] [address] [address] [place] [address] Discharge Disposition: Home or Self Care Social [...]
--- NOTE | 2024-10-17 08:45 | DI.MAMMO_ITS ---
Exam(s) MAMMO SCREENING EXAM: MAMMO SCREENING CLINICAL HISTORY: SCREENING MAMMO Z12.39. TECHNIQUE: Bilateral full field digital CC and MLO mammographic images were obtained with 3D tomosyn thesis and utilizing computer aided detection (CAD). COMPARISON: Prior mammograms were reviewed. FINDINGS: The fibroglandular tissue pattern is again noted be moderately dense. No CAD designations. There are no new spiculated masses nor malignant appearing microcalcification groups. There is no significant architectural distortion nor skin thickening-retraction. IMPRESSION: No radiographic evidence of malignancy. BI-RADS Category 1 - Negative Breast Density - Category C - Heterogeneously dense Breast density Category C or D implies that the patient has dense breast tissue. Dense breast tissue can make it harder to find cancer on a mammogram. Dense breast tissue is also associated with an incr eased risk of breast cancer. This information about the result of the mammogram report was provided to the patient to raise their awareness. Use this report when you speak with the patient about their risks for breast cancer, which includes their family history. At that time, you may recommend additional screening tests (Ultrasoun d or MRI) as these tests may add significant information. A negative radiographic report should not delay biopsy if a dominant or clinically suspicious mass is present. Up to ten percent of cancers are not identified on mammography. A negative report may reinforce clinical impression. Adenosis and dense breasts may obscure an underlying neoplasm. False positive reports average 6 to 10%. Patient will receive a letter notifying them of these results.
== END 2024-10-17 01:01 ==
LOC: DI 00:41
PROVIDERS: PCP Internal Medicine; Visit Provider Family Medicine
DX: Z12.31 Encounter for screening mammogram for malignant neoplasm of breast (principal); R92.333 Mammographic heterogeneous density, bilateral breasts
CPT/HCPCS: 77063; 77067